=== PATIENT | female | born 1960 | race Caucasian/White ===

== ENCOUNTER 2020-01-14 17:38 | Inpatient (IN) ==
[2020-01-14] MEDS ORDERED: Ondansetron 4 MG/2 ML VIAL IVP ONE ×2 (18:13→20:30)
[2020-01-14 19:01] LABS: Basophils # 0.1 K/mcL (0.0-0.2); Basophils % 0.7 %; Eosinophils # 0.1 K/mcL (0.0-0.6); Eosinophils % 1.2 %; Hematocrit 44.2 % (35.3-44.9); Hemoglobin 14.4 g/dL (11.5-15.4); Immature Granulocytes % 0.3 % (0-4); Lymphocytes # 2.3 K/mcL (0.6-4.6); Lymphocytes % 29.9 %; Mean Corpuscular HGB Conc 32.6 g/dL (31.6-35.5); Mean Corpuscular Hemoglobin 28.6 pg (28.0-33.3); Mean Corpuscular Volume 87.7 fL (83.0-100.0); Mean Platelet Volume 10.5 fL (9.4-12.4); Monocytes # 0.4 K/mcL (0.0-1.3); Monocytes % 5.8 %; Neutrophils # 4.7 K/mcL (1.6-8.9); Platelet Count 192 K/mcL (140-400); Red Blood Count 5.04 M/mcL (3.82-4.97); Red Cell Distribution Width 14.5 % (11.5-14.5); Segmented Neutrophils % 62.1 %; White Blood Count 7.6 K/mcL (4.3-11.1)
[2020-01-14 19:31] LABS: Troponin I < 0.03 ng/mL (< 0.04)
[2020-01-14 19:38] LABS: Chloride 103 mEq/L (98-107); Sodium 137 mEq/L (136-145)
[2020-01-14 19:49] LABS: BUN/Creatinine Ratio 26 (6-26); Blood Urea Nitrogen 17 mg/dL (8-23); Calcium 9.9 mg/dL (8.6-10.3); Carbon Dioxide 17 mEq/L (23-29); Glucose 156 mg/dL (70-105); Osmolality,Calculated 289 (280-300); eGFR For African Americans > 60 (> 60); eGFR For Non-African Americans > 60 (> 60)
[2020-01-14] MEDS ORDERED: *HR* HYDROmorphone (PF) 1 MG/ML SYRINGE IVP ONE (20:30)
[2020-01-14] MEDS ORDERED: Naloxone 0.4 MG/ML INJ IVP PRN (21:28)
[2020-01-14] MEDS: Ringers Solution, Lactated 1,000 ML IVC SCH (22:34)
[2020-01-14] MEDS: Ondansetron 4 MG/2 ML VIAL IVP PRN (22:37)
[2020-01-14] MEDS ORDERED: Dextrose Gel 15 GM/37.5 ML TUBE PO PRN ×2 (22:38)
[2020-01-14] MEDS ORDERED: *HR* Dextrose 50 % in Water (Vial) 50 ML VIAL IVP PRN (22:38)
[2020-01-14] MEDS ORDERED: D5% in Water 1,000 ML IVC PRN (22:38)
[2020-01-14] MEDS ORDERED: *HR* HYDROcodone/Acet 5/325 mg TABLET PO PRN (22:50)
[2020-01-14] MEDS: Insulin LISPRO 300 UNITS/3 ML VIAL SQ SCH (23:14)
[2020-01-15] MEDS: *HR* HYDROcodone/Acet 5/325 mg TABLET PO PRN ×4 (01:30→21:42)
[2020-01-15] MEDS ORDERED: *HR* HYDROmorphone (PF) 1 MG/ML SYRINGE IVP ONE (04:05)
[2020-01-15 04:37] LABS: Basophils % 0.4 %; Eosinophils % 0.4 %; Hematocrit 39.2 % (35.3-44.9); Immature Granulocytes % 0.2 % (0-4); Lymphocytes # 2.1 K/mcL (0.6-4.6); Mean Corpuscular HGB Conc 32.7 g/dL (31.6-35.5); Mean Corpuscular Hemoglobin 28.7 pg (28.0-33.3); Mean Corpuscular Volume 87.9 fL (83.0-100.0); Mean Platelet Volume 10.6 fL (9.4-12.4); Monocytes # 0.6 K/mcL (0.0-1.3); Monocytes % 6.8 %; Neutrophils # 5.7 K/mcL (1.6-8.9); Platelet Count 202 K/mcL (140-400); Red Blood Count 4.46 M/mcL (3.82-4.97); Red Cell Distribution Width 14.5 % (11.5-14.5); Segmented Neutrophils % 67.2 %; White Blood Count 8.5 K/mcL (4.3-11.1)
[2020-01-15 04:40] LABS: Hemoglobin 12.8 g/dL (11.5-15.4)
[2020-01-15 04:53] LABS: BUN/Creatinine Ratio 25 (6-26); Blood Urea Nitrogen 18 mg/dL (8-23); Calcium 9.4 mg/dL (8.6-10.3); Carbon Dioxide 27 mEq/L (23-29); Chloride 103 mEq/L (98-107); Glucose 142 mg/dL (70-105); Magnesium 1.7 mg/dL (1.6-2.6); Osmolality,Calculated 288 (280-300); Potassium 4.3 mEq/L (3.5-5.1); Sodium 137 mEq/L (136-145); eGFR For African Americans > 60 (> 60); eGFR For Non-African Americans > 60 (> 60)
[2020-01-15] MEDS: Ringers Solution, Lactated 1,000 ML IVC SCH (05:46)
[2020-01-15] MEDS: Insulin LISPRO 300 UNITS/3 ML VIAL SQ SCH ×2 (05:49→17:05)
[2020-01-15] MEDS: carvediloL 25 MG TABLET PO SCH ×2 (10:46→17:47)
[2020-01-15] MEDS: Aspirin Enteric Coated 81 MG Tablet PO SCH (10:46)
[2020-01-15] MEDS: Ondansetron 4 MG/2 ML VIAL IVP PRN (11:00)
[2020-01-15] MEDS ORDERED: MethylPREDNISolone 40 MG/ML VIAL IVP SCH (11:29)
[2020-01-15] MEDS: MethylPREDNISolone 40 MG/ML VIAL IVP SCH ×2 (13:28→20:38)
[2020-01-15] MEDS ORDERED: Insulin DETEMIR 100 UNIT/ML X5UNITS SQ SCH (21:00)
[2020-01-15] MEDS ORDERED: Insulin LISPRO 300 UNITS/3 ML VIAL SQ SCH (21:00)
[2020-01-16] MEDS: *HR* HYDROcodone/Acet 5/325 mg TABLET PO PRN ×5 (02:53→22:33)
[2020-01-16] MEDS: MethylPREDNISolone 40 MG/ML VIAL IVP SCH ×3 (04:47→20:39)
[2020-01-16] MEDS: carvediloL 25 MG TABLET PO SCH ×2 (08:37→17:54)
[2020-01-16] MEDS: Aspirin Enteric Coated 81 MG Tablet PO SCH (08:37)
[2020-01-16] MEDS: Insulin LISPRO 300 UNITS/3 ML VIAL SQ SCH ×4 (08:40→20:40)
[2020-01-16] MEDS: *HR* Metformin 500 MG TABLET PO SCH ×2 (12:11→17:54)
[2020-01-16] MEDS: *HR* Enoxaparin 40 MG/0.4 ML SYRINGE SQ SCH (18:03)
[2020-01-17] MEDS: *HR* HYDROcodone/Acet 5/325 mg TABLET PO PRN ×4 (05:18→19:25)
[2020-01-17] MEDS: MethylPREDNISolone 40 MG/ML VIAL IVP SCH (05:18)
[2020-01-17] MEDS: Aspirin Enteric Coated 81 MG Tablet PO SCH (08:20)
[2020-01-17] MEDS: *HR* Metformin 500 MG TABLET PO SCH ×2 (08:20→16:56)
[2020-01-17] MEDS: carvediloL 25 MG TABLET PO SCH ×2 (08:20→16:56)
[2020-01-17] MEDS: Insulin LISPRO 300 UNITS/3 ML VIAL SQ SCH ×4 (08:21→21:00)
[2020-01-17] MEDS: *HR* Enoxaparin 40 MG/0.4 ML SYRINGE SQ SCH (16:59)
[2020-01-17] MEDS ORDERED: Ketorolac 15 MG/ML VIAL IVP PRN (17:25)
[2020-01-18] MEDS: *HR* HYDROcodone/Acet 5/325 mg TABLET PO PRN ×3 (00:43→08:55)
[2020-01-18] MEDS: Insulin LISPRO 300 UNITS/3 ML VIAL SQ SCH ×2 (08:46→13:28)
[2020-01-18] MEDS: carvediloL 25 MG TABLET PO SCH (08:55)
[2020-01-18] MEDS: Aspirin Enteric Coated 81 MG Tablet PO SCH (08:55)
[2020-01-18] MEDS: *HR* Metformin 500 MG TABLET PO SCH (08:55)
[2020-01-18] MEDS ORDERED: polyethylene glycoL 3350 17 GM POWD.PACK PO SCH (11:30)
[2020-01-18 11:49] VITALS: BP 128/81
== END 2020-01-18 14:11 | disposition home or self-care (01) | DRG 392 ==
LOC: 3NENU 17:38 → EMEROOARM 17:38 → SUATTDRO 21:06 → 3NENU 21:55
PROVIDERS: ADMIT Family Medicine; ATTEND Internal Medicine